=== PATIENT | female | born 1970 | race Caucasian/White ===

== ENCOUNTER 2016-06-09 11:27 | Outpatient (CLI) | payer OTHER ==
--- NOTE | 2016-06-09 15:19 | DIAGNOSTIC IMAGING REPORT ---
PROCEDURE: MG BILATERAL DIAGNOSTIC W/CAD INDICATION: Follow-up left breast cystic changes. Family history of breast carcinoma (mother, aunt, cousin). TECHNIQUE: The patient was originally scheduled returned for follow-up diagnostic left mammogram and ultrasound in October 2015. However, due to extending circumstances, the patient has to return at this time. CC and MLO digital views of each breast, and exaggerated CC digital view of the left breast were obtained. In addition, high-resolution left breast ultrasound was performed (18 mHz). COMPARISON: Comparison is made to diagnostic mammogram and left breast ultrasound (05/14/2015), and screening mammogram studies (02/14/2012, 07/20/2011 ). FINDINGS: MAMMOGRAM: Computer-aided detection applied. Moderately dense and mildly nodular parenchymal pattern. No evidence of mass or suspicious calcification. BREAST ULTRASOUND: Mildly heterogeneous tissue in the caudal left breast with mild ductal ectasia. Interval resolution of cystic changes. IMPRESSION: 1. Negative mammogram and negative left breast ultrasound. 2. Resume routine screening schedule (June 2017). 3. Findings discussed with the patient. RESULT CODE: 2- Benign finding(s). A. A negative report should not delay biopsy if a dominant or clinically suspicious mass is present. 10-15% of cancers are not identified by x-ray. B. A negative report may reinforce clinical impression. C. Adenosis and dense breasts may obscure an underlying neoplasm. D. False positive reports average 6-10%. E.. A yearly screening mammogram is recommended. A reminder letter will be scheduled.
== END 2016-06-09 23:00 ==
LOC: MAM SRH 11:27
DX: N60.02 Solitary cyst of left breast (principal); Z80.3 Family history of malignant neoplasm of breast